=== PATIENT | female | born 1995 | race Caucasian/White ===

== ENCOUNTER 2017-06-25 15:39 | Emergency (ER) | payer SELFPAY ==
[2017-06-25 15:52] VITALS: BP 126/69
--- NOTE | 2017-06-25 15:54 | UC ---
Hand/Wrist HPI - HPI Summary HPI Summary: 22 YEAR OLD FEMALE PRESENTS WITH A < 2.5 CM LEFT INDEX FINGER LACERATION. - History Of Current Complaint Chief Complaint: UCLaceration Stated Complaint: LEFT INDEX FINGER Time Seen by Provider: 06/25/17 15:53 Hx Obtained From: Patient Hx Last Menstrual Period: 06/04/17 Onset/Duration: Sudden Onset Severity Initially: Moderate Severity Currently: Moderate Pain Scale Used: 0-10 Numeric - 5 Character Of Pain: Throbbing Aggravating Factor(s): Movement - Allergies/Home Medications Allergies/Adverse Reactions: Allergies Allergy/AdvReac Type Severity Reaction Status Date / Time No Known Allergies Allergy Verified 06/25/17 15:52 PMH/Surg Hx/FS Hx/Imm Hx Previously Healthy: Yes - Surgical History Surgical History: None - Social History Alcohol Use: Occasionally Substance Use Type: None Smoking Status (MU): Never Smoked Tobacco Review of Systems Constitutional: Negative Skin: Other - LEFT INDEX FINGER LACERATION Eyes: Negative ENT: Negative Respiratory: Negative Cardiovascular: Negative Gastrointestinal: Negative Genitourinary: Negative Motor: Negative Neurovascular: Negative Musculoskeletal: Negative Neurological: Negative Psychological: Negative All Other Systems Reviewed And Are Negative: Yes Physical Exam Triage Information Reviewed: Yes Appearance: Well-Appearing Vital Signs: Initial Vital Signs Temp 36.9 C 06/25/17 15:48 Pulse 65 06/25/17 15:48 Resp 14 06/25/17 15:48 BP 126/69 06/25/17 15:48 Pulse Ox 100 06/25/17 15:48 Vital Signs Reviewed: Yes Eye Exam: Normal ENT Exam: Normal Dental Exam: Normal Neck exam: Normal Neck: Positive: 1 Respiratory Exam: Normal Cardiovascular Exam: Normal Abdominal Exam: Normal Musculoskeletal Exam: Normal Neurological Exam: Normal Psychological Exam: Normal Skin: Positive: Other - LEFT INDEX FINGER LACERATION Procedures - Laceration/Wound Repair 1 Location: upper extremity - LEFT INDEX FINGER LACERATION Description: Linear Anesthesia: Local, 1.0% Betadine Prep?: Yes Laceration/Wound Explored: clean Closure: Single Layer Suture Type: Nylon - 5.0 Number of Sutures: 4 Sterile Dressing Applied?: Yes Hand/Wrist Course/Dx - Differential Dx/Diagnosis Provider Diagnoses: LEFT INDEX FINGER LACERATION Discharge - Discharge Plan Condition: Stable Disposition: HOME Prescriptions: Cephalexin CAP* [Keflex CAP*] 500 mg PO TID #30 cap Patient Education Materials: Laceration (ED) Referrals: No Primary Care Phys,NOPCP [Primary Care Provider] -
[2017-06-25] MEDS ORDERED: Lidocaine 1% MPF* 2 ML VIAL INJ ONE (15:56)
[2017-06-25] MEDS ORDERED: Tetan/Diph/Pertus SYR(Tdap)* 0.5 ML SYR(BOOSTRIX) use SYR IM ONE (15:56)
== END 2017-06-25 16:41 | disposition home or self-care (01) ==
LOC: UCCORT 15:39
DX: S61.211A Laceration without foreign body of left index finger without damage to nail, initial encounter (principal); X58.XXXA Exposure to other specified factors, initial encounter; Y92.9 Unspecified place or not applicable; Z23 Encounter for immunization
CPT/HCPCS: 12001; 90471; 90715; 99202; G0463

== ENCOUNTER 2017-07-01 15:48 | Emergency (ER) | payer SELFPAY | END 2017-07-01 17:42 | disposition left against medical advice (07) | LOC: UCCORT 15:48 | DX: Z48.02 Encounter for removal of sutures (principal) ==

== ENCOUNTER 2017-07-02 18:47 | Emergency (ER) | payer BC ==
[2017-07-02 19:33] VITALS: BP 115/59
--- NOTE | 2017-07-02 19:36 | UC ---
HPI Wound/Suture Re-check - HPI Summary HPI Summary: 22 YEAR OLD MALE PRESENTS FOR SUTURE REMOVAL OF LEFT 2ND FINGER. - History Of Current Complaint Chief Complaint: UCWounds Stated Complaint: SUTURE REMOVAL Time Seen by Provider: 07/02/17 19:34 Hx Obtained From: Patient Hx Last Menstrual Period: 26 DAYS AGO Onset/Duration: Sudden Onset Severity: Moderate - Allergies/Home Medications Allergies/Adverse Reactions: Allergies Allergy/AdvReac Type Severity Reaction Status Date / Time No Known Allergies Allergy Verified 07/02/17 19:33 PMH/Surg Hx/FS Hx/Imm Hx - Surgical History Surgical History: None - Social History Alcohol Use: Occasionally Substance Use Type: None Smoking Status (MU): Never Smoked Tobacco Review of Systems Constitutional: Negative Skin: Other - SUTURE C/D/I LEFT 2ND FINGER Eyes: Negative ENT: Negative Respiratory: Negative Cardiovascular: Negative Gastrointestinal: Negative Genitourinary: Negative Motor: Negative Neurovascular: Negative Musculoskeletal: Negative Neurological: Negative Psychological: Negative All Other Systems Reviewed And Are Negative: Yes Physical Exam Triage Information Reviewed: Yes Vital Signs: Initial Vital Signs Temp 36.8 C 07/02/17 19:28 Pulse 68 07/02/17 19:28 Resp 18 07/02/17 19:28 BP 115/59 07/02/17 19:28 Pulse Ox 99 07/02/17 19:28 Eye Exam: Normal ENT Exam: Normal Dental Exam: Normal Neck exam: Normal Neck: Positive: 1 Respiratory Exam: Normal Cardiovascular Exam: Normal Abdominal Exam: Normal Musculoskeletal Exam: Normal Neurological Exam: Normal Psychological Exam: Normal Skin: Positive: Other - SUTURE/WOUND C/D/I Course/Dx - Course Course Of Treatment: LEFT 2 ND FINGER WOUND C/D/I - Differential Dx - Laceration/Wound Provider Diagnoses: LEFT 2ND FINGER SUTURE REMOVAL Discharge - Discharge Plan Condition: Stable Disposition: HOME Patient Education Materials: Care For Your Stitches (ED), Stitches Removal (ED) Referrals: No Primary Care Phys,NOPCP [Medical Doctor] -
== END 2017-07-02 19:52 | disposition home or self-care (01) ==
LOC: UCCORT 18:47
DX: S61.211D Laceration without foreign body of left index finger without damage to nail, subsequent encounter (principal); W45.8XXD Other foreign body or object entering through skin, subsequent encounter

== ENCOUNTER 2017-11-25 14:56 | Emergency (ER) | payer BC ==
[2017-11-25 15:48] VITALS: BP 96/47
--- NOTE | 2017-11-25 16:37 | RAD ---
INDICATION: Left ankle injury COMPARISON: None TECHNIQUE: AP, lateral, and oblique views were obtained. FINDINGS: There is a nondisplaced oblique fracture of the lateral malleolus. No other fractures are evident. There is mild lateral subluxation of the ankle mortise. There is prominent lateral soft tissue swelling. IMPRESSION: FIBULAR FRACTURE WITH MILD LATERAL DISPLACEMENT OF THE ANKLE MORTISE
--- NOTE | 2017-11-25 17:38 | UC ---
Lower Extremity/Ankle HPI - HPI Summary HPI Summary: PT presents with left ankle injury. Pt states was at a [employer], pt states was on ground when someone stepped on left ankle yesterday. this morning with increased pain, swelling and ecchymosis. No knee pain. no other injuries. No other complaints. Pt took Motrin with little improvement. Pain worse with walking. no h/o injury to same. no sports teams. Pt student at [employer]. Parents present - here from [place] because of injury Pt's medications reviewed this visit - History of Current Complaint Chief Complaint: UCLowerExtremity Stated Complaint: LEFT ANKLE INJURY Time Seen by Provider: 11/25/17 16:49 Hx Obtained From: Patient Hx Last Menstrual Period: APPROX 1 MO AGO Onset/Duration: Sudden Onset Severity Initially: Moderate Severity Currently: Moderate Pain Intensity: 8 Pain Scale Used: 0-10 Numeric Aggravating Factor(s): Standing, Ambulation, Other - movement Alleviating Factor(s): Elevation - Allergies/Home Medications Allergies/Adverse Reactions: Allergies Allergy/AdvReac Type Severity Reaction Status Date / Time No Known Allergies Allergy Verified 11/25/17 15:40 Home Medications: Home Medications Ibuprofen TAB* [Advil TAB*] 600 mg PO Q6H PRN 11/25/17 [History Confirmed ] PMH/Surg Hx/FS Hx/Imm Hx Previously Healthy: Yes - Surgical History Surgical History: None - Family History Known Family History: Positive: None - Social History Occupation: Student Lives: Dormitory/Roommates Alcohol Use: Occasionally Substance Use Type: None Smoking Status (MU): Never Smoked Tobacco Review of Systems Constitutional: Negative Motor: Decreased ROM - pain Musculoskeletal: Other: - left lateral ankle swelling, pain and ecchymosis Neurological: Negative All Other Systems Reviewed And Are Negative: Yes Physical Exam Triage Information Reviewed: Yes Appearance: Well-Appearing, No Pain Distress, Well-Nourished Vital Signs: Initial Vital Signs Temp 97.5 F 11/25/17 15:42 Pulse 90 11/25/17 15:42 Resp 20 11/25/17 15:42 BP 96/47 11/25/17 15:42 Pulse Ox 96 11/25/17 15:42 Vital Signs Reviewed: Yes Eyes: Positive: Conjunctiva Clear ENT: Positive: Hearing grossly normal Neck: Positive: Supple Respiratory: Positive: No respiratory distress, No accessory muscle use Cardiovascular: Positive: Other: - 2+ DP, PT CBT < 2 sec Musculoskeletal: Positive: Other: - + SLE + flex/ext knee + tender with flex/ ext ankle Pain in inversion lateral ankle Neurological: Positive: Other: - +gross sensation throughout foot Psychological Exam: Normal Skin: Positive: Other - skin intact + diffuse edema increased left ankle + ecchymosis medial aspect Procedures - Splinting Hand-Made Type: orthoglass Splint: posterior walking Pre-Proc Neuro Vasc Exam: normal Post-Proc Neuro Vasc Exam: normal Diagnostics - Laboratory Diagnostic Studies Completed/Ordered: IMPRESSION: FIBULAR FRACTURE WITH MILD LATERAL DISPLACEMENT OF THE ANKLE MORTISE. . <Electronically signed by Jack Thompson MD in OV > 11/25/171632. Dictated By: Jack Thompson MD. Dictated Date/Time: 1632. Transcribed Date/Time: 11/25/171632 Lower Extremity Course/Dx - Course Course Of Treatment: pt with left ankle pain following injury last night. Pt with + fibular fx. Pt withouat discomfort proximal tib/fib. d/w pt and parents slightly widened mortice. placed in splint. ortho referral. Pt also given a disc of imaging - january.u with ortho in [place]. motrin/apap. ice. elevate. pt has her own crutches - Differential Dx/Diagnosis Provider Diagnoses: ankle fx Discharge - Discharge Plan Condition: Stable Disposition: HOME Patient Education Materials: Ankle Fracture (ED) Forms: *School Release Referrals: Austin Neri MD [Medical Doctor] - Non Staff,Doctor [Primary Care Provider] - Additional Instructions: -wear nahid wrap and splint for comfort and support -apply ice (20 min at a time) every 2-3 hours for the next 2 days -use crutches until you are seen in follow-up with your orthopedic provider -Elevate your leg - this will help with swelling and pain - Alternate ibuprofen (advil, motrin) 600mg and tylenol every 3 hours for pain. take with food. do NOT take for more than 4-5 days -Contact your doctor or the orthopedic referral to schedule a follow-up appointment.
== END 2017-11-25 17:47 | disposition home or self-care (01) ==
LOC: UCCORT 14:56
DX: S82.62XA Displaced fracture of lateral malleolus of left fibula, initial encounter for closed fracture (principal); W50.0XXA Accidental hit or strike by another person, initial encounter; Y93.9 Activity, unspecified; Y92.9 Unspecified place or not applicable
CPT/HCPCS: 99212; G0463